=== PATIENT | male | born 1990 | race Hispanic/Latino ===

== ENCOUNTER 2017-06-17 06:32 | Emergency (ER) | payer SELFPAY ==
[2017-06-17] MEDS ORDERED: Proparacaine 0.5% Opth 15 ML BOT ONE (06:52)
[2017-06-17] MEDS ORDERED: Fluorescein Opthalmic Strip ONE (06:52)
[2017-06-17] MEDS ORDERED: Adacel (T-DAP) 0.5 ML VIAL ONE (07:18)
== END 2017-06-17 07:50 | disposition home or self-care (01) ==
LOC: NAV ERS 06:32
DX: H16.131 Photokeratitis, right eye (principal); G40.909 Epilepsy, unspecified, not intractable, without status epilepticus; Z23 Encounter for immunization; Z79.899 Other long term (current) drug therapy; W89.8XXA Exposure to other man-made visible and ultraviolet light, initial encounter
CPT/HCPCS: 90471; 90715

== ENCOUNTER 2021-03-21 07:37 | Emergency (ER) | payer SELFPAY ==
[2021-03-21] MEDS ORDERED: Iopamidol 370 76% 100 ML VIAL ONE (09:00)
[2021-03-21 09:08] LABS: #Eosinphils 0.1 thou/uL (0.0-0.7); #Lymphocytes 2.3 thou/uL (1.20-3.40); #Monocytes 0.7 thou/uL (0.11-0.59); #Neutrophils 4.1 thou/uL (1.40-6.50); %Basophils 0.5 % (0.0-1.0); %Eosinophils 1.4 % (0.0-10.0); %Lymphocytes 31.5 % (21.0-51.0); %Monocytes 9.9 % (0.0-10.0); %Neutrophils 56.7 % (42.0-75.0); Hemoglobin 15.6 g/dL (14.0-18.0); Mean Corpuscular HGB CONC 33.5 g/dL (32.0-36.0); Mean Corpuscular Hemoglobin 31.7 pg (27.0-31.0); Mean Corpuscular Volume 94.6 fL (78.0-98.0); Mean Platelet Volume 6.9 fL (7.4-10.4); Platelet Count 271 thou/uL (130-400); RBC Distribution Width 11.5 % (11.5-14.5); Red Blood Cell (RBC) Count 4.92 mill/uL (4.70-6.10); White Blood Cell (WBC) Count 7.3 thou/uL (4.8-10.8)
[2021-03-21 09:15] LABS: INR-International Normal Ratio 0.9; PTT 29.5 sec (22.9-36.1)
[2021-03-21 09:23] LABS: ALT (SGPT) 21 U/L (8-55); AST (SGOT) 21 U/L (5-34); Alkaline Phosphatase 85 U/L (40-110); Anion Gap 10 mmol/L (10-20); BUN (Urea Nitrogen) 12 mg/dL (8.9-20.6); Bilirubin, Total 0.2 mg/dL (0.2-1.2); Calc. Creatinine Clearance 0 mL/min (70-130); Calcium 9.2 mg/dL (7.8-10.44); Carbon Dioxide 26 mmol/L (22-29); Chloride 105 mmol/L (98-107); Globulin 3.4 g/dL (2.4-3.5); Potassium 3.8 mmol/L (3.5-5.1); Protein, Total 7.4 g/dL (6.0-8.3); Sodium 137 mmol/L (136-145)
[2021-03-21 09:41] LABS: Glucose 94 mg/dL (70-105)
[2021-03-21 10:21] LABS: Bilirubin Negative (Negative); Blood, Urine Negative (Negative); Clarity Clear (Clear); Glucose, Urine (Dipstick) Negative (Negative); Ketone, Urine Negative (Negative); Leukocyte Negative (Negative); Nitrite Negative (Negative); Protein, Urine (Dipstick) Negative (Neg-Trace); Urobilinogen 0.2 mg/dL (Less than 2)
[2021-03-21] MEDS ORDERED: Acetaminophen/Codeine 30-300mg Tablet ONE (10:38)
== END 2021-03-21 11:25 | disposition home or self-care (01) ==
LOC: NAV ERS 07:37
DX: S29.012A Strain of muscle and tendon of back wall of thorax, initial encounter (principal); S39.011A Strain of muscle, fascia and tendon of abdomen, initial encounter; S20.214A Contusion of middle front wall of thorax, initial encounter; S40.021A Contusion of right upper arm, initial encounter; M79.652 Pain in left thigh; W10.9XXA Fall (on) (from) unspecified stairs and steps, initial encounter
CPT/HCPCS: 71260; 74177; 80053; 81003; 85025; 85610; 85730; Q9967

== ENCOUNTER 2021-06-13 21:23 | Emergency (ER) | payer OTHER, SELFPAY ==
[2021-06-13] MEDS ORDERED: HYDROcodone/Acetaminophen 5/325 mg Tablet ONE (21:56)
== END 2021-06-13 22:02 | disposition home or self-care (01) ==
LOC: NAV ERS 21:23
DX: S63.92XA Sprain of unspecified part of left wrist and hand, initial encounter (principal); G40.909 Epilepsy, unspecified, not intractable, without status epilepticus; W01.10XA Fall on same level from slipping, tripping and stumbling with subsequent striking against unspecified object, initial encounter

== ENCOUNTER 2022-02-23 12:43 | Emergency (ER) | payer OTHER, SELFPAY ==
[2022-02-23] MEDS ORDERED: Bacitracin 1 PK ONE (13:38)
== END 2022-02-23 14:09 ==
LOC: NAV ERS 12:43
DX: S50.312A Abrasion of left elbow, initial encounter (principal); V89.2XXA Person injured in unspecified motor-vehicle accident, traffic, initial encounter
CPT/HCPCS: 99283